=== PATIENT | male | born 1975 | race Caucasian/White ===

== ENCOUNTER 2018-10-08 09:35 | Emergency (ER) | payer SELFPAY ==
[~2018-10-08] VITALS: Ht 180.3 cm; Wt 85.3 kg
[2018-10-08] MEDS ORDERED: BACTRIM DS TAB1 EACH PO (10:06)
== END 2018-10-08 10:12 | disposition home or self-care (01) ==
LOC: ED 09:35
DX: L02.413 Cutaneous abscess of right upper limb (principal); Z87.891 Personal history of nicotine dependence
CPT/HCPCS: 99282

== ENCOUNTER 2022-03-12 10:26 | Emergency (ER) | payer OTHER ==
[~2022-03-12] VITALS: Ht 180.3 cm; Wt 90.7 kg
[~2022-03-12 10:26] MED LIST: BACTRIM DS TAB1 EACH PO
[2022-03-12] MEDS ORDERED: ADVAIR HFA 115-12 GM (10:38)
[2022-03-12] MEDS ORDERED: LISINOPRIL20 MG PO (10:38)
[2022-03-12] MEDS ORDERED: VIAGRA25 MG PO (10:39)
--- NOTE | 2022-03-13 07:29 | EKG ---
[facility] [address] [facility] [place] [address] Signed Normal sinus rhythm with sinus arrhythmia Septal infarct , age undetermined Abnormal ECG No previous ECGs available Confirmed by CHING WINTERS MD ([id number] on 03/13/2022 7:28:49 AM Electronically Signed By: CHING WINTERS MD 03/13/22 0729 PATIENT NAME: KEN HOLLIS Electrocardiogram DATE OF : 75 PHYSICIAN: CHING WINTERS MD REPORT #: [id number] REPORT IS CONFIDENTIAL AND NOT TO BE RELEASED WITHOUT AUTHORIZATION
== END 2022-03-12 14:27 | disposition home or self-care (01) ==
LOC: ED 10:26
DX: R07.9 Chest pain, unspecified (principal); F15.90 Other stimulant use, unspecified, uncomplicated; I10 Essential (primary) hypertension; J45.909 Unspecified asthma, uncomplicated; Z87.891 Personal history of nicotine dependence; Z79.899 Other long term (current) drug therapy
CPT/HCPCS: 36415; 70450; 71045; 80053; 81001; 83735; 84484; 85025; 93005; 93010; 99285-25